=== PATIENT | male | born 1990 | race Caucasian/White ===

== ENCOUNTER 2019-05-14 14:29 | Emergency (ER) | payer MEDICAID ==
[~2019-05-14] VITALS: Ht 190.5 cm; Wt 72.6 kg
[2019-05-14 15:52] VITALS: BP 130/81
[2019-05-14] MEDS ORDERED: HYDROmorphone HCL 2 MG/ML VL IM ONE (16:15)
[2019-05-14] MEDS ORDERED: PROMETHAZINE HCL 25 MG/ML 1ML IM ONE (16:15)
== END 2019-05-14 17:10 | disposition home or self-care (01) ==
LOC: ER 14:34
DX: M54.5 Low back pain (principal); X50.1XXA Overexertion from prolonged static or awkward postures, initial encounter; Y93.89 Activity, other specified; Y92.89 Other specified places as the place of occurrence of the external cause; Y99.8 Other external cause status
CPT/HCPCS: 72100; 96372; 99284; J1170; J2550